=== PATIENT | female | born 1980 | race African-American/Black ===

== ENCOUNTER 2020-06-03 13:04 | Emergency (ER) | payer OTHER ==
[~2020-06-03] VITALS: Ht 167.6 cm; Wt 87.1 kg
[2020-06-03 13:21] VITALS: Ht 167.6 cm; Wt 87.1 kg
[2020-06-03 14:19] VITALS: BP 138/95
== END 2020-06-03 14:19 | disposition home or self-care (01) ==
LOC: ED 13:04
DX: M54.5 Low back pain (principal); G43.909 Migraine, unspecified, not intractable, without status migrainosus; G89.29 Other chronic pain

== ENCOUNTER 2020-06-15 13:54 | Emergency (ER) | payer OTHER ==
[~2020-06-15] VITALS: Ht 167.6 cm; Wt 85.7 kg
[2020-06-15 14:04] VITALS: BP 106/79; Ht 167.6 cm; Wt 85.7 kg
== END 2020-06-15 15:14 | disposition home or self-care (01) ==
LOC: ED 13:54
DX: M54.5 Low back pain (principal); G89.29 Other chronic pain; G43.909 Migraine, unspecified, not intractable, without status migrainosus